=== PATIENT | male | born 1945 | race Hispanic/Latino ===

== ENCOUNTER 2018-01-15 07:08 | Inpatient (IN) | payer OTHER ==
[~2018-01-15] VITALS: Ht 177.8 cm; Wt 121.2 kg
[2018-01-15] VITALS (10 sets, daily range): BP systolic 87–174; BP diastolic 44–88
[2018-01-15] MEDS ORDERED: NOREPINEPHRINE BITARTRATE 1 MG/1 ML ML IV ONE (07:14)
[2018-01-15] MEDS ORDERED: SODIUM CHLORIDE 0.9% 250 ML IV ONE (07:14)
[2018-01-15 07:23] LABS: BASOPHILS % (AUTO) 0.8 % (0.0-5.0); EOSINOPHILS % (AUTO) 0.2 % (0.0-8.0); HEMATOCRIT 42.8 % (42-54); LYMPHOCYTES % (AUTO) 28.5 % (21.0-51.0); MEAN CORPUSCULAR HEMOGLOBIN 29.5 pg (27.0-33.0); MEAN CORPUSCULAR HGB CONC 33.6 g/dL (32.0-36.0); MEAN CORPUSCULAR VOLUME 87.9 fL (79-99); MONOCYTES % (AUTO) 5.9 % (3.0-13.0); NEUTROPHILS % (AUTO) 64.6 % (40.0-77.0); NUCLEATED RED BLOOD CELLS 0.1 % (0.0-0.19); PLATELET COUNT (AUTO) 316 K/uL (130-400); RED BLOOD CELL COUNT(AUTO) 4.87 MIL/uL (4.50-6.20); RED CELL DISTRIBUTION WIDTH 14.4 % (11.0-15.5); WHITE BLOOD COUNT (AUTO) 8.3 K/uL (4.8-10.8)
[2018-01-15 07:34] LABS: ALCOHOL, BLOOD < 3 mg/dL (0-10)
[2018-01-15 07:39] LABS: ALANINE AMINOTRANSFERASE 139 U/L (12-78); ALBUMIN 3.2 g/dL (3.5-5.0); ASPARTATE AMINOTRANSFERASE 445 U/L (10-37); BILIRUBIN,TOTAL 0.6 mg/dL (0.2-1.0); CARBON DIOXIDE 23 mmol/L (21-32); CREATININE 1.9 mg/dL (0.5-1.5); GLOMERULAR FILTR. RATE CALC 37 mL/min (>60); GLUCOSE,RANDOM 193 mg/dL (70-105); POTASSIUM 3.4 mmol/L (3.5-5.1); SODIUM SERUM 111 mmol/L (136-145); TOTAL PROTEIN, SERUM 6.4 g/dL (6.0-8.3); UREA NITROGEN, BLOOD 18 mg/dL (7-18)
[2018-01-15 07:42] LABS: INR 1.1 (0.85-1.15); PARTIAL THROMBOPLASTIN TIME 65.1 SEC (26.3-35.5); PROTHROMBIN TIME 11.5 SEC (9.6-11.6)
[2018-01-15 07:43] LABS: CHLORIDE 70 mmol/L (101-111)
[2018-01-15 07:50] LABS: CREATINE KINASE MB 171.6 ng/mL (0.5-3.6)
[2018-01-15] MEDS ORDERED: ZOSYN 3.375GM+NS 50ML 50 ML IV ONE (07:53)
[2018-01-15] MEDS ORDERED: VANCOMYCIN 1GM+NS 250ML 250 ML IV ONE (08:12)
[2018-01-15 08:19] LABS: ABG BASE EXCESS -15.7 mmol/L (-2.0-3.0); ABG HCO3 14.8 mmol/L (21.0-28.0); ABG OXYGEN SATURATION 99.6 % (95.0-99.0); ABG PCO2 54 mmHg (35-48)
[2018-01-15] MEDS ORDERED: SODIUM BICARB 50MEQ 50ML VIAL ONE (09:05)
[2018-01-15 09:45] LABS: APPEARANCE,URINE Turbid (CLEAR); BILIRUBIN,URINE Negative (NEGATIVE); COLOR,URINE Orange (YELLOW); GLUCOSE, URINE (UA) Negative (NEGATIVE); KETONES,URINE Negative (NEGATIVE); LEUKOCYTE ESTERASE ,URINE Trace (NEGATIVE); NITRATE,URINE Negative (NEGATIVE); OCCULT BLOOD,URINE Large (NEGATIVE); PROTEIN,URINE 300 (NEGATIVE)
[2018-01-15 09:55] LABS: AMPHET/METH SCREEN,URINE NEGATIVE (NEGATIVE); BARBITURATE SCREEN, URINE NEGATIVE (NEGATIVE); BENZODIAZEPINES SCREEN,URINE NEGATIVE (NEGATIVE); CANNABINOID SCREEN,URINE NEGATIVE (NEGATIVE); COCAINE SCREEN,URINE NEGATIVE (NEGATIVE); OPIATE SCREEN,URINE NEGATIVE (NEGATIVE); PHENCYCLIDINE SCREEN,URINE NEGATIVE (NEGATIVE)
[2018-01-15 10:24] LABS: RBC,URINE 0-1 /HPF (0-1)
[2018-01-15 10:25] LABS: BACTERIA,URINE Many /HPF (None Seen); SQUAMOUS EPITHELIAL CELL,UR Rare /HPF (0-2)
[2018-01-15 10:26] LABS: AMORPHOUS SEDIMENT,UR Moderate /LPF (None Seen); TRANSITIONAL EPI CELLS,URINE Rare /HPF (None Seen)
[2018-01-15 10:38] LABS: ABG BASE EXCESS -4.5 mmol/L (-2.0-3.0); ABG HCO3 22.9 mmol/L (21.0-28.0); ABG OXYGEN SATURATION 92.4 % (95.0-99.0); ABG PCO2 51 mmHg (35-48)
[2018-01-15] MEDS ORDERED: FOSPHENYTOIN SODIUM 500 MG/10ML VIAL IJ ONE (10:55)
[2018-01-15] MEDS ORDERED: SODIUM CHLORIDE 0.9% 100 ML IV ONE (10:55)
[2018-01-15] MEDS ORDERED: PROPOFOL 1000 MG/100 ML 100 ML IV ONE ×2 (11:39→20:56)
[2018-01-15] MEDS ORDERED: LEVETIRACETAM 1,000 MG in SODIUM CHLORIDE 0.9% 100 ML IV SCH ×2 (12:15→17:15)
[2018-01-15] MEDS ORDERED: ENOXAPARIN SODIUM 30 MG/0.3 ML SQ ONE (14:12)
[2018-01-15] MEDS ORDERED: SODIUM CHLORIDE 0.9% 1000ML 2,000 ML IV ONE (14:12)
[2018-01-15] MEDS ORDERED: IPRATROPIUM/ALBUTEROL SULFATE 3 ML SOLUTION IH ONE (14:57)
[2018-01-15] MEDS ORDERED: LIDOCAINE HCL-MPF 1% 2ML VIAL IJ PRN (17:00)
[2018-01-15] MEDS ORDERED: POTASSIUM CHLORIDE 20MEQ/100ML 100 ML IV PRN (17:00)
[2018-01-15] MEDS ORDERED: POTASSIUM CHLORIDE 20 MEQ ERTAB PO PRN (17:00)
[2018-01-15] MEDS ORDERED: POTASSIUM CHLORIDE 10% ELIXIR 20 MEQ/15 ML UDCUP PO PRN (17:00)
[2018-01-15] MEDS: SODIUM CHLORIDE 0.9% 1000ML 1,000 ML IV SCH (17:00)
[2018-01-15] MEDS: CHLORHEXIDINE GLUCONATE 473 ML MOUTHWASH MM SCH ×2 (17:00→21:31)
[2018-01-15] MEDS ORDERED: BUDE10.2 IH (17:29)
[2018-01-15] MEDS ORDERED: MIRT15TA6 PO (17:29)
[2018-01-15] MEDS ORDERED: LEVO125T11 PO (17:29)
[2018-01-15] MEDS ORDERED: DOXE50CA4 PO (17:29)
[2018-01-15] MEDS ORDERED: TAMS0.4C32 PO (17:29)
[2018-01-15] MEDS ORDERED: BUSP15TA3 PO (17:29)
[2018-01-15] MEDS ORDERED: FLUO-126 PO (17:29)
[2018-01-15] MEDS ORDERED: ALBUHFA IH (17:29)
[2018-01-15] MEDS ORDERED: HYDRALAZINE HCL 20 MG/ML VIAL IV PRN (17:30)
[2018-01-15] MEDS ORDERED: ACETAMINOPHEN 325 MG TAB PO PRN (17:30)
[2018-01-15] MEDS: IPRATROPIUM/ALBUTEROL SULFATE 3 ML SOLUTION IH SCH ×2 (19:05→23:23)
[2018-01-15] MEDS ORDERED: DEXTROSE 50%-WATER 50 ML DISP.SYRIN IV PRN (19:30)
[2018-01-15] MEDS ORDERED: GLUCAGON 1MG KIT 1 MG ML IM PRN (19:30)
[2018-01-15] MEDS ORDERED: FOSPHENYTOIN SODIUM IJ SCH (21:00)
[2018-01-15] MEDS ORDERED: FOSPHENYTOIN SODIUM 100 MG/2 ML VIAL IV SCH (21:00)
[2018-01-15] MEDS ORDERED: SODIUM CHLORIDE 0.9% IJ SCH (21:00)
[2018-01-15] MEDS: ZOSYN 3.375GM+NS 50ML 50 ML IV SCH (21:34)
[2018-01-15] MEDS: LEVETIRACETAM 1,000 MG in SODIUM CHLORIDE 0.9% 100 ML IV SCH (21:42)
[2018-01-16] VITALS (24 sets, daily range): BP systolic 96–143; BP diastolic 55–86
[2018-01-16] MEDS: SODIUM CHLORIDE 0.9% 1000ML 1,000 ML IV SCH ×3 (03:34→23:45)
[2018-01-16 04:52] LABS: BILIRUBIN,TOTAL 0.8 mg/dL (0.2-1.0); CREATININE 2.2 mg/dL (0.5-1.5); POTASSIUM 3.1 mmol/L (3.5-5.1); TOTAL PROTEIN, SERUM 6.2 g/dL (6.0-8.3)
[2018-01-16 05:03] LABS: HEMATOCRIT 42.5 % (42-54); MEAN CORPUSCULAR HEMOGLOBIN 29.7 pg (27.0-33.0); MEAN CORPUSCULAR HGB CONC 35.2 g/dL (32.0-36.0); MEAN CORPUSCULAR VOLUME 84.4 fL (79-99); PLATELET COUNT (AUTO) 259 K/uL (130-400); RED BLOOD CELL COUNT(AUTO) 5.03 MIL/uL (4.50-6.20); RED CELL DISTRIBUTION WIDTH 14.4 % (11.0-15.5); WHITE BLOOD COUNT (AUTO) 19.7 K/uL (4.8-10.8)
[2018-01-16 05:05] LABS: B-TYPE NATRIURETIC PEPTIDE 140 pg/mL (0-100)
[2018-01-16] MEDS: INSULIN HUMULIN R 100 UNIT/ML 3ML SQ SCH ×4 (05:18→18:00)
[2018-01-16] MEDS: LEVETIRACETAM 1,000 MG in SODIUM CHLORIDE 0.9% 100 ML IV SCH ×3 (05:18→21:56)
[2018-01-16 05:59] LABS: BAND NEUTROPHILS % (MANUAL) 13 % (0-2); LYMPHOCYTES % (MANUAL) 4 % (22-44); METAMYELOCYTES % 1 % (0-0); MONOCYTES % (MANUAL) 6 % (2-9); REACTIVE LYMPHOCYTES 1 % (0-0); SEGMENTED NEUTROPHILS % 75 % (40-70)
[2018-01-16 06:00] LABS: MAN.DIFF COMMENT-IMPRESSION MANUAL DIFFERENTIAL; PLATELET MORPHOLOGY COMMENT ADEQUATE
[2018-01-16] MEDS ORDERED: FOSPHENYTOIN SODIUM 100 MG/2 ML VIAL IV SCH (06:00)
[2018-01-16 06:03] LABS: INR 0.94 (0.85-1.15); PARTIAL THROMBOPLASTIN TIME 33.5 SEC (26.3-35.5); PROTHROMBIN TIME 9.9 SEC (9.6-11.6)
[2018-01-16] MEDS: IPRATROPIUM/ALBUTEROL SULFATE 3 ML SOLUTION IH SCH (06:33)
[2018-01-16] MEDS: FOSPHENYTOIN SODIUM 100 MG in SODIUM CHLORIDE 0.9% 50 ML IJ SCH ×2 (06:57→13:56)
[2018-01-16 07:11] LABS: ABG BASE EXCESS -3.4 mmol/L (-2.0-3.0); ABG HCO3 20.3 mmol/L (21.0-28.0); ABG OXYGEN SATURATION 96.8 % (95.0-99.0); ABG PCO2 33 mmHg (35-48)
[2018-01-16] MEDS ORDERED: ACETAMINOPHEN 650 MG SUPPOSITORY RC PRN (08:15)
[2018-01-16] MEDS ORDERED: PROPOFOL 1000 MG/100 ML IV PRN (08:15)
[2018-01-16] MEDS: ZOSYN 3.375GM+NS 50ML 50 ML IV SCH (08:21)
[2018-01-16] MEDS ORDERED: FOSPHENYTOIN SODIUM 100 MG/2 ML VIAL IV PRN (08:30)
[2018-01-16] MEDS ORDERED: PHARMACY COMMUNICATION MISC SCH (08:30)
[2018-01-16] MEDS ORDERED: PANTOPRAZOLE 40 MG/VIAL IVP SCH (09:00)
[2018-01-16] MEDS ORDERED: ENOXAPARIN SODIUM 30 MG/0.3 ML SQ SCH (09:00)
[2018-01-16] MEDS ORDERED: PANTOPRAZOLE SODIUM 40 MG TABLET.DR PO SCH (09:14)
[2018-01-16] MEDS ORDERED: SODIUM CHLORIDE 0.9% IJ SCH (09:17)
[2018-01-16] MEDS ORDERED: FOSPHENYTOIN SODIUM IJ SCH (09:17)
[2018-01-16] MEDS ORDERED: SODIUM CHLORIDE 0.9% IJ PRN (09:19)
[2018-01-16] MEDS ORDERED: FOSPHENYTOIN SODIUM IJ PRN (09:19)
[2018-01-16] MEDS ORDERED: LEVOFLOXACIN 500 MG/D5W 100 ML 100 ML IV SCH (09:30)
[2018-01-16 10:00] LABS: CREATINE KINASE MB 114.2 ng/mL (0.5-3.6)
[2018-01-16] MEDS: ENOXAPARIN SODIUM 40 MG/0.4 ML SYRINGE SQ SCH (10:00)
[2018-01-16 10:02] LABS: TROPONIN I 1.02 ng/mL (0.00-0.06)
[2018-01-16] MEDS: CHLORHEXIDINE GLUCONATE 473 ML MOUTHWASH MM SCH ×4 (10:09→21:51)
[2018-01-16] MEDS: PANTOPRAZOLE 40 MG/VIAL IVP SCH (10:23)
[2018-01-16] MEDS: IPRATROPIUM/ALBUTEROL SULFATE 3 ML SOLUTION IH PRN ×2 (11:10→18:50)
[2018-01-16] MEDS ORDERED: COMPOUND IV MISC 1 EACH IVSOLN MISC PRN (11:45)
[2018-01-16] MEDS: METRONIDAZOLE 500MG/100ML BAG 100 ML IVPB SCH ×2 (13:56→22:01)
[2018-01-16 14:41] LABS: CREATININE,URINE RANDOM 158 mg/dL (30-135); SODIUM,URINE RANDOM 15 mmol/l (40-220)
[2018-01-16] MEDS: PROPOFOL 1000 MG/100 ML 100 ML IV PRN (23:46)
[2018-01-17] VITALS (33 sets, daily range): BP systolic 69–124; BP diastolic 41–76
[2018-01-17] MEDS: IPRATROPIUM/ALBUTEROL SULFATE 3 ML SOLUTION IH PRN ×5 (00:44→23:29)
[2018-01-17] MEDS ORDERED: FOSPHENYTOIN SODIUM 100 MG/2 ML VIAL IV SCH ×2 (03:00)
[2018-01-17 04:23] LABS: MEAN CORPUSCULAR HEMOGLOBIN 29.1 pg (27.0-33.0); MEAN CORPUSCULAR HGB CONC 34.3 g/dL (32.0-36.0); MEAN CORPUSCULAR VOLUME 84.9 fL (79-99); PLATELET COUNT (AUTO) 210 K/uL (130-400); RED BLOOD CELL COUNT(AUTO) 4.24 MIL/uL (4.50-6.20); RED CELL DISTRIBUTION WIDTH 14.9 % (11.0-15.5); WHITE BLOOD COUNT (AUTO) 13.9 K/uL (4.8-10.8)
[2018-01-17 04:39] LABS: PHOSPHORUS 5.5 mg/dL (2.5-4.9)
[2018-01-17 04:41] LABS: POTASSIUM 2.8 mmol/L (3.5-5.1)
[2018-01-17 05:24] LABS: CREATINE KINASE MB 36.4 ng/mL (0.5-3.6); TROPONIN I 0.3 ng/mL (0.00-0.06)
[2018-01-17] MEDS: INSULIN HUMULIN R 100 UNIT/ML 3ML SQ SCH ×4 (06:00→18:00)
[2018-01-17] MEDS: LEVETIRACETAM 1,000 MG in SODIUM CHLORIDE 0.9% 100 ML IV SCH ×3 (06:06→22:11)
[2018-01-17] MEDS: METRONIDAZOLE 500MG/100ML BAG 100 ML IVPB SCH ×3 (06:08→22:31)
[2018-01-17] MEDS: CHLORHEXIDINE GLUCONATE 473 ML MOUTHWASH MM SCH ×4 (07:41→21:24)
[2018-01-17] MEDS: SODIUM CHLORIDE 0.9% 1000ML 1,000 ML IV SCH ×2 (07:43→15:39)
[2018-01-17] MEDS: ENOXAPARIN SODIUM 40 MG/0.4 ML SYRINGE SQ SCH (07:43)
[2018-01-17 08:55] LABS: ABG BASE EXCESS -2.9 mmol/L (-2.0-3.0); ABG HCO3 23.2 mmol/L (21.0-28.0); ABG OXYGEN SATURATION 98.5 % (95.0-99.0); ABG PCO2 45 mmHg (35-48)
[2018-01-17] MEDS ORDERED: LEVOFLOXACIN 250 MG/D5W 50ML 50 ML IVPB SCH (09:45)
[2018-01-17] MEDS: PANTOPRAZOLE 40 MG/VIAL IVP SCH (09:59)
[2018-01-17] MEDS: FOSPHENYTOIN SODIUM 100 MG in SODIUM CHLORIDE 0.9% 50 ML IJ SCH ×3 (09:59→21:24)
[2018-01-17] MEDS: PROPOFOL 1000 MG/100 ML 100 ML IV PRN ×3 (10:38→21:26)
[2018-01-17] MEDS ORDERED: PHARMACY COMMUNICATION MISC SCH (15:15)
[2018-01-17] MEDS ORDERED: [UNRECOGNIZED DRUG - OTHER] IV PRN (15:30)
[2018-01-17] MEDS ORDERED: NOREPINEPHRINE BIT IV PRN (15:30)
[2018-01-17] MEDS: NOREPINEPHRINE BIT IV PRN (16:29)
[2018-01-17] MEDS: [UNRECOGNIZED DRUG - OTHER] IV PRN (16:29)
[2018-01-17] MEDS: LORAZEPAM 2 MG/ML 1 ML VIAL IVP PRN (17:48)
[2018-01-18] VITALS (33 sets, daily range): BP systolic 83–144; BP diastolic 50–75
[2018-01-18] MEDS: PROPOFOL 1000 MG/100 ML 100 ML IV PRN ×4 (02:25→20:53)
[2018-01-18] MEDS: FOSPHENYTOIN SODIUM 100 MG in SODIUM CHLORIDE 0.9% 50 ML IJ SCH ×3 (02:27→17:50)
[2018-01-18] MEDS: NOREPINEPHRINE BIT IV PRN (04:25)
[2018-01-18] MEDS: [UNRECOGNIZED DRUG - OTHER] IV PRN (04:25)
[2018-01-18] MEDS: LORAZEPAM 2 MG/ML 1 ML VIAL IVP PRN ×2 (04:25→17:47)
[2018-01-18] MEDS: SODIUM CHLORIDE 0.9% 1000ML 1,000 ML IV SCH ×2 (05:03→17:35)
[2018-01-18 05:10] LABS: BASOPHILS % (AUTO) 0.2 % (0.0-5.0); EOSINOPHILS % (AUTO) 0.5 % (0.0-8.0); HEMATOCRIT 31.3 % (42-54); LYMPHOCYTES % (AUTO) 7.4 % (21.0-51.0); MEAN CORPUSCULAR HEMOGLOBIN 30.6 pg (27.0-33.0); MEAN CORPUSCULAR HGB CONC 35.8 g/dL (32.0-36.0); MEAN CORPUSCULAR VOLUME 85.5 fL (79-99); MONOCYTES % (AUTO) 10.8 % (3.0-13.0); NEUTROPHILS % (AUTO) 81.1 % (40.0-77.0); PLATELET COUNT (AUTO) 224 K/uL (130-400); RED BLOOD CELL COUNT(AUTO) 3.66 MIL/uL (4.50-6.20); RED CELL DISTRIBUTION WIDTH 14.8 % (11.0-15.5); WHITE BLOOD COUNT (AUTO) 12.4 K/uL (4.8-10.8)
[2018-01-18 05:13] LABS: CREATININE 4.5 mg/dL (0.5-1.5); POTASSIUM 3.4 mmol/L (3.5-5.1)
[2018-01-18] MEDS: INSULIN HUMULIN R 100 UNIT/ML 3ML SQ SCH ×4 (06:00→17:59)
[2018-01-18] MEDS: LEVETIRACETAM 1,000 MG in SODIUM CHLORIDE 0.9% 100 ML IV SCH (06:12)
[2018-01-18] MEDS: METRONIDAZOLE 500MG/100ML BAG 100 ML IVPB SCH ×2 (06:30→17:50)
[2018-01-18] MEDS ORDERED: RENAL DOSE IV SCH (08:15)
[2018-01-18] MEDS: LEVOTHYROXINE 125 MCG TABLET PO SCH (08:18)
[2018-01-18] MEDS: CHLORHEXIDINE GLUCONATE 473 ML MOUTHWASH MM SCH ×4 (10:06→21:18)
[2018-01-18] MEDS: PANTOPRAZOLE 40 MG/VIAL IVP SCH (10:07)
[2018-01-18] MEDS: ENOXAPARIN SODIUM 30 MG/0.3 ML SQ SCH (10:07)
[2018-01-18] MEDS: ARTIFICAL TEARS SOL 15 ML OU SCH ×2 (12:00→17:58)
[2018-01-18] MEDS: LINEZOLID 600 MG/ISO-OSM 300 ML IV SCH (21:18)
[2018-01-18] MEDS: LEVETIRACETAM 500 MG in SODIUM CHLORIDE 0.9% 100 ML IV SCH (21:58)
[2018-01-19] VITALS (24 sets, daily range): BP systolic 93–175; BP diastolic 47–84
[2018-01-19] MEDS: METRONIDAZOLE 500MG/100ML BAG 100 ML IVPB SCH ×3 (00:42→16:51)
[2018-01-19] MEDS: SODIUM CHLORIDE 0.9% 1000ML 1,000 ML IV SCH ×3 (01:00→10:29)
[2018-01-19] MEDS: FOSPHENYTOIN SODIUM 100 MG in SODIUM CHLORIDE 0.9% 50 ML IJ SCH ×4 (01:25→18:10)
[2018-01-19] MEDS: ARTIFICAL TEARS SOL 15 ML OU SCH ×4 (01:25→18:09)
[2018-01-19 03:49] LABS: HEMATOCRIT 28.9 % (42-54); MEAN CORPUSCULAR HEMOGLOBIN 29.7 pg (27.0-33.0); MEAN CORPUSCULAR HGB CONC 34.5 g/dL (32.0-36.0); PLATELET COUNT (AUTO) 191 K/uL (130-400); RED BLOOD CELL COUNT(AUTO) 3.36 MIL/uL (4.50-6.20); WHITE BLOOD COUNT (AUTO) 9.2 K/uL (4.8-10.8)
[2018-01-19 03:59] LABS: CREATININE 5.6 mg/dL (0.5-1.5); MAGNESIUM 2.2 mg/dL (1.80-2.40); PHOSPHORUS 6.3 mg/dL (2.5-4.9); POTASSIUM 3.3 mmol/L (3.5-5.1)
[2018-01-19 05:05] LABS: ABG BASE EXCESS -5.4 mmol/L (-2.0-3.0); ABG HCO3 20.8 mmol/L (21.0-28.0); ABG OXYGEN SATURATION 97.8 % (95.0-99.0); ABG PCO2 43 mmHg (35-48)
[2018-01-19] MEDS: PROPOFOL 1000 MG/100 ML 100 ML IV PRN ×2 (05:22→08:49)
[2018-01-19] MEDS ORDERED: LEVOTHYROXINE 25 MCG TABLET ONE (05:48)
[2018-01-19] MEDS ORDERED: LEVOTHYROXINE 100 MCG TABLET ONE (05:48)
[2018-01-19] MEDS: NOREPINEPHRINE BIT IV PRN (05:50)
[2018-01-19] MEDS: [UNRECOGNIZED DRUG - OTHER] IV PRN (05:50)
[2018-01-19] MEDS: INSULIN HUMULIN R 100 UNIT/ML 3ML SQ SCH ×4 (06:00→18:00)
[2018-01-19] MEDS: LEVOTHYROXINE 125 MCG TABLET PO SCH (06:30)
[2018-01-19] MEDS: PANTOPRAZOLE 40 MG/VIAL IVP SCH (08:49)
[2018-01-19] MEDS: LINEZOLID 600 MG/ISO-OSM 300 ML IV SCH ×2 (08:49→20:37)
[2018-01-19] MEDS: ENOXAPARIN SODIUM 30 MG/0.3 ML SQ SCH (08:50)
[2018-01-19] MEDS: CHLORHEXIDINE GLUCONATE 473 ML MOUTHWASH MM SCH ×4 (08:50→23:59)
[2018-01-19] MEDS: LEVETIRACETAM 500 MG in SODIUM CHLORIDE 0.9% 100 ML IV SCH ×2 (09:05→23:30)
[2018-01-19] MEDS ORDERED: LEVOFLOXACIN 250 MG/D5W 50ML 50 ML IVPB SCH (09:45)
[2018-01-20] VITALS (15 sets, daily range): BP systolic 109–150; BP diastolic 58–86
[2018-01-20] MEDS: ARTIFICAL TEARS SOL 15 ML OU SCH ×5 (00:23→23:08)
[2018-01-20] MEDS: METRONIDAZOLE 500MG/100ML BAG 100 ML IVPB SCH ×2 (00:23→09:43)
[2018-01-20] MEDS ORDERED: SODIUM CHLORIDE 0.9% 250 ML IV ONE (02:24)
[2018-01-20 04:27] LABS: HEMATOCRIT 29.8 % (42-54); MEAN CORPUSCULAR HEMOGLOBIN 30.8 pg (27.0-33.0); MEAN CORPUSCULAR HGB CONC 35.7 g/dL (32.0-36.0); MEAN CORPUSCULAR VOLUME 86.2 fL (79-99); PLATELET COUNT (AUTO) 210 K/uL (130-400); RED BLOOD CELL COUNT(AUTO) 3.46 MIL/uL (4.50-6.20); RED CELL DISTRIBUTION WIDTH 15.1 % (11.0-15.5)
[2018-01-20 05:05] LABS: ALBUMIN 2.2 g/dL (3.5-5.0); BILIRUBIN,TOTAL 0.4 mg/dL (0.2-1.0); CREATININE 6.1 mg/dL (0.5-1.5); POTASSIUM 3.5 mmol/L (3.5-5.1); TOTAL PROTEIN, SERUM 5.4 g/dL (6.0-8.3)
[2018-01-20] MEDS: FOSPHENYTOIN SODIUM 100 MG in SODIUM CHLORIDE 0.9% 50 ML IJ SCH ×6 (05:18→23:07)
[2018-01-20] MEDS: LEVOTHYROXINE 125 MCG TABLET PO SCH (05:36)
[2018-01-20] MEDS: PANTOPRAZOLE 40 MG/VIAL IVP SCH (09:43)
[2018-01-20] MEDS: LEVETIRACETAM 500 MG in SODIUM CHLORIDE 0.9% 100 ML IV SCH ×2 (09:43→21:30)
[2018-01-20] MEDS: ENOXAPARIN SODIUM 30 MG/0.3 ML SQ SCH (09:43)
[2018-01-20] MEDS: CHLORHEXIDINE GLUCONATE 473 ML MOUTHWASH MM SCH ×4 (09:44→21:31)
[2018-01-20] MEDS: LINEZOLID 600 MG/ISO-OSM 300 ML IV SCH (11:13)
[2018-01-20] MEDS: INSULIN HUMULIN R 100 UNIT/ML 3ML SQ SCH ×2 (12:00)
[2018-01-21] VITALS (10 sets, daily range): BP systolic 95–132; BP diastolic 41–76
[2018-01-21] MEDS: ARTIFICAL TEARS SOL 15 ML OU SCH ×3 (05:35→17:33)
[2018-01-21] MEDS: FOSPHENYTOIN SODIUM 100 MG in SODIUM CHLORIDE 0.9% 50 ML IJ SCH ×3 (05:35→17:33)
[2018-01-21] MEDS: LEVETIRACETAM 500 MG in SODIUM CHLORIDE 0.9% 100 ML IV SCH ×2 (10:39→21:18)
[2018-01-21] MEDS: CHLORHEXIDINE GLUCONATE 473 ML MOUTHWASH MM SCH ×4 (10:39→21:18)
[2018-01-22] VITALS (7 sets, daily range): BP systolic 105–121; BP diastolic 59–68
[2018-01-22] MEDS: ARTIFICAL TEARS SOL 15 ML OU SCH ×4 (00:08→17:27)
[2018-01-22] MEDS: FOSPHENYTOIN SODIUM 100 MG in SODIUM CHLORIDE 0.9% 50 ML IJ SCH ×4 (00:08→17:53)
[2018-01-22] MEDS: LEVETIRACETAM 500 MG in SODIUM CHLORIDE 0.9% 100 ML IV SCH ×2 (08:20→21:11)
[2018-01-22] MEDS: CHLORHEXIDINE GLUCONATE 473 ML MOUTHWASH MM SCH ×4 (08:31→21:11)
[2018-01-23] VITALS: BP 114/65
[2018-01-23] MEDS: ARTIFICAL TEARS SOL 15 ML OU SCH ×2 (00:41→05:36)
[2018-01-23] MEDS: FOSPHENYTOIN SODIUM 100 MG in SODIUM CHLORIDE 0.9% 50 ML IJ SCH ×2 (00:42→05:34)
[2018-01-23 04:00] VITALS: BP 113/62
[2018-01-23 08:00] VITALS: BP 113/62
[2018-01-23] MEDS: CHLORHEXIDINE GLUCONATE 473 ML MOUTHWASH MM SCH (10:23)
[2018-01-23] MEDS: LEVETIRACETAM 500 MG in SODIUM CHLORIDE 0.9% 100 ML IV SCH (10:23)
[2018-01-23 12:00] VITALS: BP 109/62
== END 2018-01-23 12:43 | disposition expired | DRG 870 ==
LOC: EDH 07:08 → EDHIP 09:35 → 2CH 16:42
PROVIDERS: ADMIT Internal Medicine Nephrology; ATTEND Internal Medicine Nephrology
PROC: 0BH17EZ Insertion of Endotracheal Airway into Trachea, Via Natural or Artificial Opening (ICD-10-PCS; principal; 2018-01-15)
PROC: 5A1955Z Respiratory Ventilation, Greater than 96 Consecutive Hours (ICD-10-PCS; 2018-01-15)
DX: A41.9 Sepsis, unspecified organism (principal); J96.02 Acute respiratory failure with hypercapnia; J96.01 Acute respiratory failure with hypoxia; N17.0 Acute kidney failure with tubular necrosis; R65.21 Severe sepsis with septic shock; E87.1 Hypo-osmolality and hyponatremia; E87.0 Hyperosmolality and hypernatremia; E87.2 Acidosis; G93.1 Anoxic brain damage, not elsewhere classified; M62.82 Rhabdomyolysis; N30.00 Acute cystitis without hematuria; Z99.11 Dependence on respirator [ventilator] status; Z66 Do not resuscitate; I46.9 Cardiac arrest, cause unspecified; B96.89 Other specified bacterial agents as the cause of diseases classified elsewhere; D64.9 Anemia, unspecified; E03.9 Hypothyroidism, unspecified; E11.22 Type 2 diabetes mellitus with diabetic chronic kidney disease; E66.9 Obesity, unspecified; E87.6 Hypokalemia; F17.200 Nicotine dependence, unspecified, uncomplicated; F31.9 Bipolar disorder, unspecified; F43.10 Post-traumatic stress disorder, unspecified; I12.9 Hypertensive chronic kidney disease with stage 1 through stage 4 chronic kidney disease, or unspecified chronic kidney disease; I25.10 Atherosclerotic heart disease of native coronary artery without angina pectoris; I49.9 Cardiac arrhythmia, unspecified; J44.9 Chronic obstructive pulmonary disease, unspecified; N18.9 Chronic kidney disease, unspecified; Z51.5 Encounter for palliative care; W18.30XA Fall on same level, unspecified, initial encounter; Z68.38 Body mass index [BMI] 38.0-38.9, adult; Y93.89 Activity, other specified; Y92.098 Other place in other non-institutional residence as the place of occurrence of the external cause; Y99.8 Other external cause status
CPT/HCPCS: 36415; 36600; 70450; 71045; 72125; 80048; 80053; 80185; 80305; 81001; 82140; 82550; 82553; 82570; 82803; 82948; 83605; 83735; 83874; 83880; 83935; 84100; 84295; 84300; 84484; 85025; 85027; 85610; 85730; 87040; 87088; 87186; 93005; 93306; 94002; 94003; 94640; 94664; 99291; C1751; C1894; C9113; G0480; J1650; J1953; J1956; J2020; J2060; J2543; J2704; J3370; J3480; J3490; J7030; Q2009